=== PATIENT | male | born 1975 | race American Indian/Alaskan Native ===

== ENCOUNTER 2017-01-20 08:03 | Emergency (ER) | payer OTHER ==
[2017-01-20] MEDS ORDERED: CATAPRES PO ONE (08:24)
[2017-01-20] MEDS ORDERED: DELTASONE PO ONE (08:53)
[2017-01-20] MEDS ORDERED: PERCOCET 5/325 PO ONE (08:53)
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
[2017-01-20 10:19] VITALS: BP 135/85
== END 2017-01-20 10:44 | disposition home or self-care (01) ==
LOC: ED 08:03
DX: M54.16 Radiculopathy, lumbar region (principal); R03.0 Elevated blood-pressure reading, without diagnosis of hypertension; F17.200 Nicotine dependence, unspecified, uncomplicated
CPT/HCPCS: 99282; J7512